=== PATIENT | female | born 1940 | race Caucasian/White ===

== ENCOUNTER → 2019-02-12 | Outpatient (CLI) | payer MEDICARE, OTHER ==
--- NOTE | 2019-02-12 13:46 | KCIC ---
EXAM: Lumbar spine MRI without contrast. HISTORY: Lower back pain and right lower extremity radiculopathy. TECHNIQUE: Multiplanar, multisequence magnetic resonance imaging of the lumbar spine was performed without contrast. COMPARISON: None. FINDINGS: There is S-shaped lumbar scoliosis with dextrocurvature centered at the upper lumbar levels and levocurvature centered at the lower lumbar levels. There is grade 1 anterolisthesis of L4 and L5, measuring 6 mm. There is grade 1 anterolisthesis of L5 on S1, measuring 3 mm. There is degenerative endplate remodeling with disc space narrowing and osteophytosis primarily along the left aspects of L2-L3 and L3-L4. This corresponds with the levels of maximum scoliotic curvature. There is no acute or subacute fracture. There is no suspicious osseous lesion. There is a small right renal cyst. 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 At T10-T11, there is a minimal disc bulge and endplate remodeling. There is mild facet arthropathy. There is mild bilateral foraminal stenosis. At T11-T12, there is a posterior central disc protrusion superimposed on a disc bulge and endplate remodeling. There is mild facet arthropathy. There is no stenosis. At T12-L1, there is mild facet arthropathy. There is no stenosis. At L1-L2, there is a right foraminal inferior disc extrusion superimposed on a disc bulge and endplate remodeling. There is moderate facet arthropathy. There is hypertrophy of the ligamentum flavum. There is mild bilateral foraminal stenosis. There is mild central canal stenosis. At L2-L3, there is a left lateral predominant disc bulge and endplate osteophytosis. There is mild right and moderate left facet arthropathy. There is moderate left foraminal stenosis with abutment of the exiting left L2 nerve root. There is minimal central canal stenosis. At L3-L4, there is a broad-based left paracentral to extra foraminal disc protrusion with slight inferior and superior extrusion superimposed on a left lateral predominant disc bulge and endplate osteophytosis. There is moderate right and severe left facet arthropathy. There is hypertrophy of the ligamentum flavum. There is mild to moderate right and moderate left foraminal stenosis. There is abutment of the exiting left L3 nerve root. There is moderate central canal stenosis. At L4-L5, there is a disc bulge with bilateral foraminal annular tears and endplate there is severe facet arthropathy. There is grade 1 anterolisthesis. There is abutment of the exiting L4 nerve roots without significant foraminal stenosis. At L5-S1, there is a shallow broad-based right paracentral disc protrusion and left foraminal to extra foraminal disc osteophyte complex superimposed on a disc bulge and endplate remodeling. There is mild facet arthropathy. There is grade 1 anterolisthesis. There is mild right and moderate left foraminal stenosis with abutment of the exiting L5 nerve roots. IMPRESSION: 1. 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 This results in suspected mild bilateral foraminal stenosis at T10-T11, mild bilateral foraminal and central canal stenosis at L1-L2, moderate left foraminal stenosis with abutment of the exiting left L2 nerve root and minimal central canal stenosis at L2-L3, mild to moderate right and moderate left foraminal stenosis with abutment of the exiting left L3 nerve root and moderate central canal stenosis L3-L4, abutment of the exiting L4 nerve roots at L4-L5 and mild right and moderate left foraminal stenosis with abutment of the exiting L5 nerve roots at L5-S1. 2. Mild S-shaped lumbar scoliosis and multilevel listhesis, described above. Electronically signed by: Ria Vega MD (02/12/2019 1:44 PM) [id number]
== END | disposition home or self-care (01) ==
LOC: KCIC MRI 12:54
PROVIDERS: ATTEND Physician Assistant
DX: M47.26 Other spondylosis with radiculopathy, lumbar region (principal); M48.061 Spinal stenosis, lumbar region without neurogenic claudication; M41.86 Other forms of scoliosis, lumbar region; M48.04 Spinal stenosis, thoracic region; M48.07 Spinal stenosis, lumbosacral region; M12.88 Other specific arthropathies, not elsewhere classified, other specified site; M51.16 Intervertebral disc disorders with radiculopathy, lumbar region; N28.1 Cyst of kidney, acquired; I77.811 Abdominal aortic ectasia
CPT/HCPCS: 72148